=== PATIENT | female | born 1990 | race Two or more races ===

== ENCOUNTER 2025-01-20 19:54 | Inpatient (IN) | payer MEDICAID, OTHER ==
[~2025-01-20] VITALS: Ht 167.6 cm; Wt 72.1 kg
--- NOTE | 2025-01-20 21:31 | ED.PDOC ---
GI ASSESSMENT HPI Comments 34-year-old female with a history of UTI, presented to the ER with a chief complaint of epigastric abdominal pain for the past 1 day. Patient reports that she started experiencing epigastric abdominal pain that radiates down to a lower abdomen, she recently was diagnosed with a UTI 6 months back, and her symptoms are still persistent. She is not on any antibiotics currently. She does report urinary frequency and dysuria. Denies fever and chills, nausea and vomiting. Had 2 bowel movements earlier today. Abdominal pain is burning type in nature. She just finished her menstruation and has a IUD. And denied recent travel or sick contacts. Denies seeing a physician or taking any medications. Patient seen and examined. Epigastric and right upper quadrant tenderness. Chief Complaint: Abdominal Pain Time Seen by MD: 20:19 Reviewed Notes: Nurses Notes Allergies: Coded Allergies: NO KNOWN ALLERGIES (Unverified , 01/20/25) Information Source: Patient Mode of Arrival: Ambulatory Constitutional: denies: chills, diaphoresis, fatigue, fever, malaise, sweats, weakness, others EENTM: denies: blurred vision, double vision, ear bleeding, ear discharge, ear drainage, ear pain, ear ringing, eye pain, eye redness, hearing loss, mouth pain, mouth swelling, nasal discharge, nose bleeding, nose congestion, nose pain, photophobia, tearing, throat pain, throat swelling, voice changes, others Respiratory: denies: cough, hemoptysis, orthopnea, SOB at rest, shortness of breath, SOB with excertion, stridor, wheezing, others Cardiovascular: reports: dizzy spells; denies: chest pain, diaphoresis, Dyspnea on exertion, edema, irregular heart beat, left arm pain, lightheadedness, palpitations, PND, syncope, others Gastrointestinal: reports: abdominal pain Genitourinary: reports: burning, frequency Neurological: denies: dizziness, fainting, headache, left sided numbness, left sided weakness, numbness, paresthesia, pre-existing deficit, right sided numbness, right sided weakness, seizure, speech problems, tingling, tremors, weakness, others Musculoskeletal: denies: back pain, gout, joint pain, joint swelling, muscle pain, muscle stiffness, neck pain, others Integumetry: denies: bruises, change in color, change in hair/nails, dryness, laceration, lesions, lumps, rash, wounds, others Allergic/Immunocompromised: denies: Difficulty Healing, Frequent Infections, Hives, Itching, others Hematologic/Lymphatic: denies: anemia, blood clots, easy bleeding, easy bruising, swollen glands, others Endocrine: denies: excessive hunger, excessive sweating, excessive thirst, excessive urination, flushing, intolerance to cold, intolerance to heat, unexplained weight gain, unexplained weight loss, others Psychiatric: denies: anxiety, bipolar disorder, depression, hopeless, panic disorder, schizophrenia, sleepless, suicidal, others Physical Exam General Appearance: No Apparent Distress, Normal HEENT: Other (Dry mucous membranes) Neck: NOT DONE Respiratory: No Accessory Muscle Use, No Respiratory Distress, Normal Breath Sounds Cardiovascular: No Edema, No Murmur, Tachycardia Breast Exam: Deferred Gastrointestinal: No Organomegaly, Normal Bowel Sounds, Tenderness (Right upper quadrant) Genitalia: Deferred Pelvic: Deferred Rectal: Deferred Extremities: No calf tenderness, Normal capillary refill, Normal inspection, Normal range of motion, Non-tender, No pedal edema Neurologic: Alert, No Motor Deficits, Normal Affect, Normal Mood, No Sensory Deficits Cerebellar Function: NOT DONE Reflexes: NOT DONE Skin: Dry Lymphatic: NOT DONE Was a procedure done? Was a procedure done?: No GI differential Dx Differential Diagnosis: Gastritis/PUD, Gastroenteritis, Pancreatitis, Food Poisoning X-Ray, Labs, Meds, VS Vital Signs Date Time Temp Pulse Resp B/P (MAP) Pulse Ox O2 Delivery O2 Flow Rate FiO2 01/20/25 19:56 97.9 104 16 143/91 98 97.9 Lab Test 01/21/25 00:23 01/20/25 22:00 01/20/25 21:01 Range/Units White Blood Count 14.2 H 12.9 H 4.4-10.8 10^3/uL Red Blood Count 4.70 4.65 4.0-5.20 10^6/uL Hemoglobin 13.8 13.9 12.2-16.2 g/dL Hematocrit 41.3 40.5 36.0-46.0 % Mean Corpuscular Volume 87.9 87.2 80.0-100.0 fL Mean Corpuscular Hemoglobin 29.5 29.8 28.0-32.0 pg Mean Corpuscular Hemoglobin Concent 33.5 34.2 32.0-36.0 g/dL Red Cell Distribution Width 14.0 13.7 11.8-14.3 % Platelet Count 233 227 140-450 10^3/uL Mean Platelet Volume 8.8 8.7 6.9-10.8 fL Neutrophils (%) (Auto) 73.6 74.6 37.0-80.0 % Lymphocytes (%) (Auto) 18.9 18.5 10.0-50.0 % Monocytes (%) (Auto) 6.1 5.6 0.0-12.0 % Eosinophils (%) (Auto) 1.2 1.1 0.0-7.0 % Basophils (%) (Auto) 0.2 0.2 0.0-2.0 % Neutrophils # (Auto) 10.4 H 9.6 H 1.6-8.6 10 ^3/uL Lymphocytes # (Auto) 2.7 2.4 0.4-5.4 10 ^3/uL Monocytes # (Auto) 0.9 0.7 0-1.3 10 ^3/uL Eosinophils # (Auto) 0.2 0.1 0-0.8 10 ^3/uL Basophils # (Auto) 0 0 0-0.2 10 ^3/uL Nucleated Red Blood Cells 0.0 0.2 % Sodium Level 141 140 136-145 mmol/L Potassium Level 3.7 3.8 3.5-5.1 mmol/L Chloride Level 104 103 98-107 mmol/L Carbon Dioxide Level 27 28 20-31 mmol/L Anion Gap 10 9 5-15 Blood Urea Nitrogen < 5 L 7 L 9-23 mg/dL Creatinine 0.69 0.69 0.550-1.02 mg/dL Glomerular Filtration Rate Calc 115 115 >90 mL/min BUN/Creatinine Ratio 7.2 L 10.1 10.0-20.0 Serum Glucose 96 98 74-106 mg/dL Hemoglobin A1c 5.2 <5.7 % A1C Calcium Level 9.3 9.4 8.7-10.4 mg/dL Phosphorus Level 3.7 2.4-5.1 mg/dL Vitamin B12 Level Pending Vitamin D 25-Hydroxy 23.8 L 30.0-100 ng/mL Thyroid Stimulating Hormone (TSH) Pending Urine Color Light-yellow Yellow Urine Clarity Clear Clear Urine pH 7.0 5.0-9.0 Urine Specific [place] 1.009 1.001-1.035 Urine Protein Negative Negative Urine Ketones Negative Negative Urine Blood Negative Negative /uL Urine Nitrite Negative Negative Urine Bilirubin Negative Negative Urine Urobilinogen Normal Negative mg/dL Urine Leukocyte Esterase 3+ Negative /uL Urine RBC None seen 0 - 4 /hpf Urine Microscopic WBC 9 H 0-5 /HPF Urine Squamous Epithelial Cells Few <5 /hpf Urine Bacteria Mod H None Seen /hpf Urine Glucose Normal Normal mg/dL Urine Test Negative Negative Prothrombin Time 11.1 9.3-11.8 sec Prothrombin Time INR 1.05 0.9-1.15 Activated Partial Thromboplast Time 35.1 H 24.5-34.5 SEC Lactic Acid Level 0.7 0.4-2.0 mmol/L Total Bilirubin 0.6 0.2-1.0 mg/dL Aspartate Amino Transferase (AST) 14 13-40 U/L Alanine Aminotransferase (ALT) 11 7-40 U/L Alkaline Phosphatase 52 46-116 U/L Total Protein 7.9 5.7-8.2 g/dL Albumin 4.7 3.2-4.8 g/dL Lipase 37 12-53 U/L X-Ray, Labs, Meds, VS Comment CT abdomen showed Acute uncomplicated appendicitis. Images Reviewed?: Images reviewed and evaluated by me Time of 1ST Reevaluation: 00:00 Reevaluation 1ST: Unchanged Patient Education/Counseling: Diagnosis, Treatment Family Education/Counseling: Diagnosis, Treatment SEPSIS Sepsis Screen Date sepsis recognized/suspect: Jan 20, 2025 Time Sepsis recognized/suspect: 1955 Recent Procedure: No On Antibiotic Therapy: No Respiratory Rate >20: No Heart Rate >90: No Temp<36 C (96.8 F) or >38.3 C: No SBP <90 or MAP <65 mmHG: No New Acute Mental Status Change: No Is the patient on CPAP, BIPAP,: No Physician Orders Ct Ab Pel Wo Con-No Oral Or Iv (01/20/25 20:58) Electrocardigram (01/21/25 00:11) Pantoprazole (Protonix) (01/21/25 06:00) Metronidazole 500mg/100ml (Flagyl 500mg/ (01/21/25 00:15) Npo (Nothing By Mouth) Diet (01/21/25 Breakfast) * Surgical Consult (01/21/25 ) Drug Screen (01/21/25 00:42) Thyroid Stimulating Hormone (01/21/25 00:42) Vitamin B12 (01/21/25 00:42) Vital Signs Date Time Temp Pulse Resp B/P (MAP) Pulse Ox O2 Delivery O2 Flow Rate FiO2 01/20/25 19:56 97.9 104 16 143/91 98 97.9 Laboratory Tests Test 01/20/25 21:01 01/21/25 00:23 Lactic Acid Level 0.7 mmol/L (0.4-2.0) White Blood Count 12.9 10^3/uL (4.4-10.8) H 14.2 10^3/uL (4.4-10.8) H Departure 1 Departure Time of Disposition: 00:30 Impression: Primary Impression: Acute appendicitis Disposition: ADMITTED INPATIENT Condition: Fair Comments Patient admitted to this facility for further workup and management of acute appendicitis including IV antibiotics, IV fluids and surgical consultation. Critical Care Note Critical Care Time?: No Stability Stability form required: NELSON Shin RESIDENT Jan 20, 2025 21:31
[2025-01-20 21:39] LABS: Hematocrit 40.5 % (36.0-46.0); Hemoglobin 13.9 g/dL (12.2-16.2); Mean Corpuscular Hemoglobin 29.8 pg (28.0-32.0); Mean Corpuscular Volume 87.2 fL (80.0-100.0); Nucleated Red Blood Cells % 0.2 %
[2025-01-20 21:49] LABS: Alanine Aminotransferase 11 U/L (7-40); Albumin 4.7 g/dL (3.2-4.8); Alkaline Phosphatase 52 U/L (46-116); Anion Gap 9 (5-15); BUN/Creatinine Ratio 10.1 (10.0-20.0); Bilirubin, Total 0.6 mg/dL (0.2-1.0); Calcium 9.4 mg/dL (8.7-10.4); Carbon Dioxide 28 mmol/L (20-31); Chloride 103 mmol/L (98-107); Glucose 98 mg/dL (74-106); Potassium 3.8 mmol/L (3.5-5.1); Sodium 140 mmol/L (136-145); Total Protein 7.9 g/dL (5.7-8.2)
[2025-01-20 22:39] LABS: Urine Protein, UAD Negative (Negative)
[2025-01-20 22:42] LABS: Blood Urea Nitrogen 7 mg/dL (9-23)
--- NOTE | 2025-01-20 23:26 | DVH ---
Exam: CT CT AB PEL WO CON-NO ORAL OR IV History: abdominal pain Comparison Study: None Technique: Multidetector spiral CT of the abdomen was performed from lung bases to pubic symphysis. I maging was performed without IV contrast. Axial, coronal and sagittal multiplanar reformats were obta ined from the axial data set by the technologist. Radiation Dose : 1. Abdomen/Pelvis: CTDIvol 6.36 mGy, DLP 305.1 mGy*cm. Findings: Evaluation of solid organs is limited due to lack of intravenous contrast use. Lung Bases: No acute or significant lung base finding. Normal heart size. No pleural or pericardial effusion. Liver: The liver is normal in size. No focal lesions. Gallbladder and Biliary Tree: Unremarkable Spleen: Unremarkable Pancreas: The pancreas is grossly normal in appearance. Adrenal Glands: Unremarkable Kidneys: Kidneys are grossly normal without calculi or hydronephrosis. Bladder: Grossly unremarkable for degree of distention. Bowel: Appendix is fluid-filled and dilated extending deep into the pelvis posteriorly measuring 1.2 cm in diameter. Mild surrounding inflammatory changes. Ascites: Trace free fluid, within normal limits for physiologic. Lymphadenopathy: No mesenteric, retroperitoneal or periportal lymphadenopathy. Abdominal Wall and Mesentery: Unremarkable. Vasculature: The visualized abdominal aorta is normal in size and caliber. Evaluation of abdominal a nd pelvic vessels is limited due to lack of intravenous contrast. Pelvic Organs: IUD in-situ. Musculoskeletal: No aggressive focal bony lesions, acute fractures or dislocation. IMPRESSION: Acute uncomplicated appendicitis. Radiation optimization: All CT scans at this facility use at least one of these dose optimization aime hniques: automated exposure control mA and/or kV adjustment per patient size (includes targeted exam s where dose is matched to clinical indication) or iterative reconstruction.
[2025-01-21] VITALS (8 sets, daily range): BP systolic 82–115; BP diastolic 48–73; PULSE 60–83; RESP 9–20; TEMP 97.6–98.2; O2SAT 96–98
[2025-01-21 00:43] LABS: INR 1.05 (0.9-1.15); Partial Thromboplastin Time 35.1 SEC (24.5-34.5); Prothrombin Time 11.1 sec (9.3-11.8)
[2025-01-21 01:06] LABS: Chloride 104 mmol/L (98-107); Potassium 3.7 mmol/L (3.5-5.1); Sodium 141 mmol/L (136-145)
[2025-01-21 01:07] LABS: Anion Gap 10 (5-15); Carbon Dioxide 27 mmol/L (20-31)
[2025-01-21 01:08] LABS: Calcium 9.3 mg/dL (8.7-10.4); Hematocrit 41.3 % (36.0-46.0); Hemoglobin 13.8 g/dL (12.2-16.2); Mean Corpuscular Hemoglobin 29.5 pg (28.0-32.0); Mean Corpuscular Volume 87.9 fL (80.0-100.0); Nucleated Red Blood Cells % 0.0 %
[2025-01-21 01:12] LABS: Glucose 96 mg/dL (74-106)
[2025-01-21 01:13] LABS: BUN/Creatinine Ratio 7.2 (10.0-20.0); Blood Urea Nitrogen < 5 mg/dL (9-23)
[2025-01-21] MEDS ORDERED: ONDANSETRON HCL 4 MG/2 ML VIAL IV PRN ×2 (01:15→16:30)
--- NOTE | 2025-01-21 01:15 | DVHHPRES ---
History of Present Illness Resident Creating Document: ANTON COLUNGA History of Present Illness Ms. Reveles Is a 34-year-old female with no prior medical history, who presents today with chief complaint of abdominal pain. The patient states the pain began last night and is described as sharp pain in epigastrium, intensity 10/10, that radiates down to lower abdominal quadrants and toward her rectum, associated with inability to tolerate food and liquids, dry heaving, nausea, chills, and palpitation. She denies fever, diarrhea, chest pain, shortness of breath, and o ther symptoms. Due to persistence of symptoms, the patient sought medical attention in the emergency department. On evaluation in the ED, the patient was afebrile, tachycardic, and hypertensive. Initial labs show leukocytosis with neutrophilia and UA significant for possible UTI. Abdominal CT shows appendix is fluid-filled and dilated extending deep into the pelvis posteriorly with mild surrounding inflammatory changes suggestive of acute uncomplicated appendicitis. The patient was placed on NPO and started on IV fluids, IV pain medication, and IV antibiotics. She was admitted for further workup and management. Personal history: Denies Surgical history: previous D&C Allergies: Denies Social history: Denies drug, alcohol, and tobacco use. States she lives with her and feels safe. Review of Systems Review of Systems Constitutional: Refers chills, nausea, Denies weight loss, fever HEENT: Denies changes in vision and hearing. Respiratory: Denies shortness of breath and cough Cardiovascular: Refers palpitations Denies chest discomfort GI: Refers abdominal pain Denies abdominal distention, diarrhea : Denies dysuria and urinary frequency. Musculoskeletal: Denies Skin: Denies rash and pruritus. Neurological: denies dizziness headache vision or hearing problems Allergies: Coded Allergies: NO KNOWN ALLERGIES (Unverified , 01/20/25) Medications Current Medications Medications Dose Ordered Sig/Tarsha Route Start Time Stop Time Status Last Admin Dose Admin Metronidazole 100 ml @ 100 mls/hr Q8HR IV 01/21/25 00:15 Exam Vital Signs Vital Signs Date Time Temp Pulse Resp B/P (MAP) Pulse Ox O2 Delivery O2 Flow Rate FiO2 01/20/25 19:56 97.9 104 16 143/91 98 97.9 Exam General: The patient alert and oriented in person place and time. Patient following commands HEENT: Normocephalic, atraumatic, normal reactive pupils, EOM intact, pink conjunctiva, pink moist mucous membrane Respiratory/pulmonary: Bilateral chest expansion, no pain on palpation of chest wall, clear lungs bilaterally, vesicular murmurs present in almost all lung ryan, no associated crackles or wheezes. Cardiovascular: Tachycardia, normal rhythm, normal S1 and S2, no murmurs Abdomen: Abdomen nondistended, normal bowel sounds, soft, pain to palpation in lower abdominal quadrants, McBurney positive, Rovsing positive, Josselin negative, no palpable masses. Extremities: No deformities, there is no peripheral edema present at the lower extremities, normal pulses Skin: No rashes or pruritus, there is no sacral edema present at this time. Neurological: Intact cranial nerves with no focal neurologic deficits Labs/Xrays Labs Test 01/21/25 00:23 01/20/25 22:00 01/20/25 21:01 Range/Units White Blood Count 14.2 H 4.4-10.8 10^3/uL Red Blood Count 4.70 4.0-5.20 10^6/uL Hemoglobin 13.8 12.2-16.2 g/dL Hematocrit 41.3 36.0-46.0 % Mean Corpuscular Volume 87.9 80.0-100.0 fL Mean Corpuscular Hemoglobin 29.5 28.0-32.0 pg Mean Corpuscular Hemoglobin Concent 33.5 32.0-36.0 g/dL Red Cell Distribution Width 14.0 11.8-14.3 % Platelet Count 233 140-450 10^3/uL Mean Platelet Volume 8.8 6.9-10.8 fL Neutrophils (%) (Auto) 73.6 37.0-80.0 % Lymphocytes (%) (Auto) 18.9 10.0-50.0 % Monocytes (%) (Auto) 6.1 0.0-12.0 % Eosinophils (%) (Auto) 1.2 0.0-7.0 % Basophils (%) (Auto) 0.2 0.0-2.0 % Neutrophils # (Auto) 10.4 H 1.6-8.6 10 ^3/uL Lymphocytes # (Auto) 2.7 0.4-5.4 10 ^3/uL Monocytes # (Auto) 0.9 0-1.3 10 ^3/uL Eosinophils # (Auto) 0.2 0-0.8 10 ^3/uL Basophils # (Auto) 0 0-0.2 10 ^3/uL Nucleated Red Blood Cells 0.0 % Sodium Level 141 136-145 mmol/L Potassium Level 3.7 3.5-5.1 mmol/L Chloride Level 104 98-107 mmol/L Carbon Dioxide Level 27 20-31 mmol/L Anion Gap 10 5-15 Blood Urea Nitrogen < 5 L 9-23 mg/dL Creatinine 0.69 0.550-1.02 mg/dL Glomerular Filtration Rate Calc 115 >90 mL/min BUN/Creatinine Ratio 7.2 L 10.0-20.0 Serum Glucose 96 74-106 mg/dL Calcium Level 9.3 8.7-10.4 mg/dL Urine Color Light-yellow Yellow Urine Clarity Clear Clear Urine pH 7.0 5.0-9.0 Urine Specific [place] 1.009 1.001-1.035 Urine Protein Negative Negative Urine Ketones Negative Negative Urine Blood Negative Negative /uL Urine Nitrite Negative Negative Urine Bilirubin Negative Negative Urine Urobilinogen Normal Negative mg/dL Urine Leukocyte Esterase 3+ Negative /uL Urine RBC None seen 0 - 4 /hpf Urine Microscopic WBC 9 H 0-5 /HPF Urine Squamous Epithelial Cells Few <5 /hpf Urine Bacteria Mod H None Seen /hpf Urine Glucose Normal Normal mg/dL Urine Test Negative Negative Prothrombin Time 11.1 9.3-11.8 sec Prothrombin Time INR 1.05 0.9-1.15 Activated Partial Thromboplast Time 35.1 H 24.5-34.5 SEC Lactic Acid Level 0.7 0.4-2.0 mmol/L Total Bilirubin 0.6 0.2-1.0 mg/dL Aspartate Amino Transferase (AST) 14 13-40 U/L Alanine Aminotransferase (ALT) 11 7-40 U/L Alkaline Phosphatase 52 46-116 U/L Total Protein 7.9 5.7-8.2 g/dL Albumin 4.7 3.2-4.8 g/dL Lipase 37 12-53 U/L SEPSIS Sepsis Screen Date sepsis recognized/suspect: Jan 20, 2025 Time Sepsis recognized/suspect: 1955 Recent Procedure: No On Antibiotic Therapy: No Respiratory Rate >20: No Heart Rate >90: No Temp<36 C (96.8 F) or >38.3 C: No SBP <90 or MAP <65 mmHG: No New Acute Mental Status Change: No Is the patient on CPAP, BIPAP,: No Physician Orders Ct Ab Pel Wo Con-No Oral Or Iv (01/20/25 20:58) Electrocardigram (01/21/25 00:11) Pantoprazole (Protonix) (01/21/25 06:00) Metronidazole 500mg/100ml (Flagyl 500mg/ (01/21/25 00:15) Npo (Nothing By Mouth) Diet (01/21/25 Breakfast) Type And Screen (01/21/25 00:11) * Surgical Consult (01/21/25 ) Drug Screen (01/21/25 00:42) Hemoglobin A1c (01/21/25 00:42) Phosphorus (01/21/25 00:42) Thyroid Stimulating Hormone (01/21/25 00:42) Vitamin D, 25-Hydroxy (01/21/25 00:42) Vitamin B12 (01/21/25 00:42) Basic Metabolic Panel (01/21/25 00:23) Admit (01/21/25 01:08) Allergies (01/21/25 01:08) Code Status (01/21/25 01:08) Stat Ekg For Chest Pain (01/21/25 01:08) Notify Md Of Changes From Base (01/21/25 01:08) Emergency Dysrhythmia Protocol (01/21/25 01:08) Rhythm Strips Once Every Shift (01/21/25 01:08) Ketorolac Injection (Toradol Injection) (01/21/25 01:15) Ceftriaxone Ivpb Rocephin (01/21/25 09:00) Metronidazole Ivpb Flagyl (01/21/25 06:00) NS (01/21/25 01:15) Pantoprazole (Protonix) (01/21/25 10:00) Ondansetron Hcl (Zofran) (01/21/25 01:15) Vital Signs Date Time Temp Pulse Resp B/P (MAP) Pulse Ox O2 Delivery O2 Flow Rate FiO2 01/20/25 19:56 97.9 104 16 143/91 98 97.9 Laboratory Tests Test 01/20/25 21:01 01/21/25 00:23 Lactic Acid Level 0.7 mmol/L (0.4-2.0) White Blood Count 12.9 10^3/uL (4.4-10.8) H 14.2 10^3/uL (4.4-10.8) H Assessment/Plan Assessment/Plan Assessment and Plan: Intractable abdominal pain secondary to Acute appendicitis - Abdominal CT: Appendix is fluid-filled and dilated extending deep into the pelvis posteriorly measuring 1.2 cm in diameter, mild surrounding inflammatory changes, acute uncomplicated appendicitis - NS 1000 cc bolus - NS maintenance 75 cc/hour - Metronidazole 500 mg IV q.8 hours - Ceftriaxone 1 g IV daily - Toradol 15 mg IV q.6 hours PRN - Zofran 4 mg IV q.4 hours PRN - General surgery has been consulted - The patient has been placed on NPO pending evaluation by General surgery Acute Cystitis without Hematuria - Ceftriaxone 1 g IV daily - Urine culture has been ordered Vitamin-D deficiency - Vitamin-D 50471 units Q 7 D once NPO is lifted Diet: NPO DVT prophylaxis: Patient is ambulatory GI prophylaxis: Protonix 40 mg IV daily Case discussed with Dr. Payne Goals of care discussed with the patient and her for 25 minutes. Full code. Plan discussed with: Patient, Spouse, Other (Nurses) My Orders Orders - ANTON COLUNGA RESIDENT Procedure Category Date Status Time Drug Screen LAB 01/21/25 Logged 00:42 Hemoglobin A1c LAB 01/21/25 In Process 00:42 Phosphorus LAB 01/21/25 In Process 00:42 Thyroid Stimulating LAB 01/21/25 In Process Hormone 00:42 Vitamin D, 25-Hydroxy LAB 01/21/25 In Process 00:42 Vitamin B12 LAB 01/21/25 In Process 00:42 Basic Metabolic Panel LAB 01/21/25 In Process 00:23 Admit ADMIT 01/21/25 Transmitted 01:08 Allergies LIONEL 01/21/25 Transmitted 01:08 Code Status CODE 01/21/25 Transmitted 01:08 Stat Ekg For Chest LIONEL 01/21/25 Transmitted Pain 01:08 Notify Of Changes LIONEL 01/21/25 Transmitted From Base 01:08 Emergency Dysrhythmia LIONEL 01/21/25 Transmitted Protocol 01:08 Rhythm Strips Once LIONEL 01/21/25 Transmitted Every Shift 01:08 Ketorolac Injection PHA 01/21/25 Transmitted (Toradol Injection) 01:15 Ceftriaxone Ivpb PHA 01/21/25 Transmitted Rocephin 09:00 Metronidazole Ivpb PHA 01/21/25 Transmitted Flagyl 06:00 NS PHA 01/21/25 Transmitted 01:15 Pantoprazole PHA 01/21/25 Transmitted (Protonix) 10:00 Ondansetron Hcl PHA 01/21/25 Transmitted (Zofran) 01:15 Date of Service: Jan 21, 2025 Billing Provider: HARITHA VAZQUEZ MD Common Visit Codes: 51992-EVPWUTA INP/OBS CARE (HIGH) Secondary Visit Codes: 98097-[id number] CARE PLAN 30 MINUTES ANTON COLUNGA RESIDENT Jan 21, 2025 01:15 LESLYE FARRELL RESIDENT Jan 21, 2025 02:40
[2025-01-21] MEDS: ONDANSETRON HCL 4 MG/2 ML VIAL IM ONE (01:37)
[2025-01-21] MEDS: PANTOPRAZOLE 40 MG TAB PO ONE (01:37)
[2025-01-21] MEDS: SODIUM CHLORIDE 0.9% 1,000 ML IV ONE (01:53)
[2025-01-21] MEDS: KETOROLAC TROMETH 30 MG/ML 1ML VIAL IV ONE ×2 (02:02→16:55)
[2025-01-21 03:30] LABS: Amphetamine Screen, Urine Neg (NEGATIVE); Barbiturate Scree,Urine Neg (NEGATIVE); Benzodiazephine Screen, Urine Neg (NEGATIVE); Cannabinoid Screen, Urine Neg (NEGATIVE); Cocaine Screen, Urine Neg (NEGATIVE); Opiate Scree,Urine Neg (NEGATIVE); Phencyclidine Screen, Urine Neg (NEGATIVE)
[2025-01-21] MEDS: SODIUM CHLORIDE 0.9% 1,000 ML IV SCH ×2 (04:02→17:40)
[2025-01-21] MEDS ORDERED: POTASSIUM EFFERVESENT TAB 25 MEQ GT ONE (06:15)
[2025-01-21] MEDS: PANTOPRAZOLE 40 MG/10 ML VIAL INJ IV ONE (06:26)
[2025-01-21] MEDS: PANTOPRAZOLE 40 MG/10 ML VIAL INJ IV SCH (09:09)
[2025-01-21] MEDS: SODIUM CHLORIDE 0.9% 1,800 ML IV ONE (09:11)
--- NOTE | 2025-01-21 14:25 | DVHINCON2 ---
Date of service: Jan 21, 2025 Family History: Hypertension G8 MOTHER Allergies: Coded Allergies: NO KNOWN ALLERGIES (Unverified , 01/20/25) Home Meds No Active Prescriptions or Reported Meds Current Medications Current Medications Medications (Trade) Dose Ordered Sig/Tarsha Route PRN Reason Start Time Stop Time Status Last Admin Metronidazole 100 ml @ 100 mls/hr Q8HR IV 01/21/25 00:15 01/21/25 13:58 Ketorolac Tromethamine (Toradol Injection) 15 mg Q6HPRN PRN IV MILD PAIN (1-3 PAIN SCALE) 01/21/25 01:15 01/26/25 01:14 Ceftriaxone Sodium 50 ml @ 100 mls/hr DAILY@09 IV 01/21/25 09:00 Metronidazole 100 ml @ 100 mls/hr Q8HR IV 01/21/25 06:00 01/21/25 01:20 DC Sodium Chloride 1,000 ml @ 75 mls/hr [id number] IV 01/21/25 01:15 01/21/25 08:22 DC 01/21/25 04:02 Pantoprazole Sodium (Protonix) 40 mg DAILY IV 01/21/25 10:00 Ondansetron HCl (Zofran) 4 mg Q4HPRN PRN IV NAUSEA / VOMITING 01/21/25 01:15 Sodium Chloride 1,000 ml @ 100 mls/hr Q10H IV 01/21/25 08:15 Vital Signs Vital Signs Date Time Temp Pulse Resp B/P (MAP) Pulse Ox O2 Delivery O2 Flow Rate FiO2 01/21/25 13:10 98.2 68 18 101/60 (74) 97 98.2 01/21/25 01:40 Room Air* 0 21 Labs/Diagnostic Data Labs Test 01/21/25 00:23 01/20/25 22:20 01/20/25 22:00 01/20/25 21:01 Range/Units White Blood Count 14.2 H 4.4-10.8 10^3/uL Red Blood Count 4.70 4.0-5.20 10^6/uL Hemoglobin 13.8 12.2-16.2 g/dL Hematocrit 41.3 36.0-46.0 % Mean Corpuscular Volume 87.9 80.0-100.0 fL Mean Corpuscular Hemoglobin 29.5 28.0-32.0 pg Mean Corpuscular Hemoglobin Concent 33.5 32.0-36.0 g/dL Red Cell Distribution Width 14.0 11.8-14.3 % Platelet Count 233 140-450 10^3/uL Mean Platelet Volume 8.8 6.9-10.8 fL Neutrophils (%) (Auto) 73.6 37.0-80.0 % Lymphocytes (%) (Auto) 18.9 10.0-50.0 % Monocytes (%) (Auto) 6.1 0.0-12.0 % Eosinophils (%) (Auto) 1.2 0.0-7.0 % Basophils (%) (Auto) 0.2 0.0-2.0 % Neutrophils # (Auto) 10.4 H 1.6-8.6 10 ^3/uL Lymphocytes # (Auto) 2.7 0.4-5.4 10 ^3/uL Monocytes # (Auto) 0.9 0-1.3 10 ^3/uL Eosinophils # (Auto) 0.2 0-0.8 10 ^3/uL Basophils # (Auto) 0 0-0.2 10 ^3/uL Nucleated Red Blood Cells 0.0 % Sodium Level 141 136-145 mmol/L Potassium Level 3.7 3.5-5.1 mmol/L Chloride Level 104 98-107 mmol/L Carbon Dioxide Level 27 20-31 mmol/L Anion Gap 10 5-15 Blood Urea Nitrogen < 5 L 9-23 mg/dL Creatinine 0.69 0.550-1.02 mg/dL Glomerular Filtration Rate Calc 115 >90 mL/min BUN/Creatinine Ratio 7.2 L 10.0-20.0 Serum Glucose 96 74-106 mg/dL Hemoglobin A1c 5.2 <5.7 % A1C Calcium Level 9.3 8.7-10.4 mg/dL Phosphorus Level 3.7 2.4-5.1 mg/dL Vitamin B12 Level 607 211-911 pg/mL Vitamin D 25-Hydroxy 23.8 L 30.0-100 ng/mL Thyroid Stimulating Hormone (TSH) 1.25 0.55-4.78 uIU/mL Urine Opiates Screen Neg NEGATIVE Urine Fentanyl Screen Neg NEGATIVE Urine Barbiturates Screen Neg NEGATIVE Urine Phencyclidine Screen Neg NEGATIVE Urine Amphetamines Screen Neg NEGATIVE Urine Benzodiazepines Screen Neg NEGATIVE Urine Cocaine Screen Neg NEGATIVE Urine Cannabinoids Screen Neg NEGATIVE Urine Color Light-yellow Yellow Urine Clarity Clear Clear Urine pH 7.0 5.0-9.0 Urine Specific [place] 1.009 1.001-1.035 Urine Protein Negative Negative Urine Ketones Negative Negative Urine Blood Negative Negative /uL Urine Nitrite Negative Negative Urine Bilirubin Negative Negative Urine Urobilinogen Normal Negative mg/dL Urine Leukocyte Esterase 3+ Negative /uL Urine RBC None seen 0 - 4 /hpf Urine Microscopic WBC 9 H 0-5 /HPF Urine Squamous Epithelial Cells Few <5 /hpf Urine Bacteria Mod H None Seen /hpf Urine Glucose Normal Normal mg/dL Urine Test Negative Negative Prothrombin Time 11.1 9.3-11.8 sec Prothrombin Time INR 1.05 0.9-1.15 Activated Partial Thromboplast Time 35.1 H 24.5-34.5 SEC Lactic Acid Level 0.7 0.4-2.0 mmol/L Total Bilirubin 0.6 0.2-1.0 mg/dL Aspartate Amino Transferase (AST) 14 13-40 U/L Alanine Aminotransferase (ALT) 11 7-40 U/L Alkaline Phosphatase 52 46-116 U/L Total Protein 7.9 5.7-8.2 g/dL Albumin 4.7 3.2-4.8 g/dL Lipase 37 12-53 U/L Assessment [id number] PAIN RLQ AFEBRILE VSS ABD SOFT TENDER RLQ CT SCAN AC APPENDICITIS LAP/OPEN APPENDECTOMY FAMILY AND NURSE AT BEDSIDE Plan discussed with: Patient PRAVEEN MORRELL MD Jan 21, 2025 14:25
--- NOTE | 2025-01-21 15:09 | DVHINCON2 ---
DATE OF CONSULTATION: 01/21/2025 HISTORY OF PRESENT ILLNESS: A 34-year-old, coming with right lower quadrant pain starting Monday, 2-3 days ago and it got worse, came to the Emergency Room. I got to see her. The pain is persisting in the right lower abdomen. It started out in the mid abdomen. No nausea or vomiting. No constipation or diarrhea. No hematemesis or melena. No bleeding per rectum. PAST MEDICAL HISTORY: No diabetes or hypertension. PAST SURGICAL HISTORY: Previous D and C. PHYSICAL EXAMINATION: VITAL SIGNS: Afebrile. Stable vital signs. HEENT: There is no evidence of pallor, cyanosis, or jaundice. NECK: Supple, nontender with thyromegaly or lymphadenopathy. CHEST AND LUNGS: Clear. HEART: Within normal limits. ABDOMEN: Soft. Tender in the right lower quadrant with evidence of rebound. EXTREMITIES: Unremarkable. NEUROLOGIC: Intact. CLINICAL IMPRESSION: Acute appendicitis. PLAN: Laparoscopic, possible open appendectomy. Benefits were discussed and a consent obtained. MD JANETT Rodríguez/CACHORRO/CLARISSA TID: [id number] RECEIPT: [id number] cc: SIRENA KENYON
[2025-01-21] MEDS ORDERED: fentaNYL CITRATE 100 MCG/2 ML VL ONE (15:10)
[2025-01-21] MEDS ORDERED: MIDAZOLAM HCL 2MG/2ML 2ml VIAL (1mg/ml) ONE (15:10)
[2025-01-21] MEDS ORDERED: ONDANSETRON HCL 4 MG/2 ML VIAL ONE (15:11)
[2025-01-21] MEDS ORDERED: ROCURONIUM 10MG/ML 10ML VIAL IV ONE (15:11)
[2025-01-21] MEDS ORDERED: METOCLOPRAMIDE HCL 5MG/ml INJ 2ml VIAL ONE (15:11)
[2025-01-21] MEDS ORDERED: PROPOFOL 10 MG/ML 20 ML IV ONE (15:11)
[2025-01-21] MEDS ORDERED: LIDOCAINE 2% (LOCAL ANESTH.) PF 5ml SDV ONE (15:11)
[2025-01-21] MEDS ORDERED: HYDROmorphone HCL 2 MG/ML VL/or syr ONE (15:44)
[2025-01-21] MEDS: BUPIVACAINE 0.25% INJ 50ML VIAL ONE (16:14)
--- NOTE | 2025-01-21 16:24 | DVHOP2 ---
Operative Report [id number] AC APPENDICITIS DRAIN INTRAABD ABSCESS LAP APPENDECTOMY EBL 5 CC NO DRAIN NO COMPLICATION STABLE TRANSFER TO RECOVERY ROOM PRAVEEN MORRELL MD Jan 21, 2025 16:24
[2025-01-21] MEDS ORDERED: HYDROmorphone HCL 2 MG/ML VL/or syr IV PRN (16:30)
[2025-01-21] MEDS ORDERED: METOCLOPRAMIDE HCL 5MG/ml INJ 2ml VIAL IV PRN (16:30)
--- NOTE | 2025-01-21 16:45 | DVHOP ---
DATE OF SURGERY: 01/21/2025 PREOPERATIVE DIAGNOSIS: Acute appendicitis. POSTOPERATIVE DIAGNOSES: Acute appendicitis, was found to have intraabdominal pelvic abscess. PROCEDURE: Drainage of intraabdominal pelvic abscess with laparoscopic appendectomy. SURGEON: Pipe Sweeney MD ARMATURE WINDER: None. ANESTHESIA: General. ESTIMATED BLOOD LOSS: Close to 5 mL. DRAINS: No drains were used. COMPLICATIONS: No complications were encountered. DESCRIPTION OF PROCEDURE: The patient was prepped and draped in the usual sterile fashion in the supine position and a supraumbilical incision was applied. It was taken down to the fascia. The Veress needle was introduced and CO2 insufflation was started with a pressure of 15 mmHg. The needle was withdrawn and replaced by the 12 mm trocar and the telescope was introduced. The appendix was found to be acutely inflamed and distended. Two 5 mm ports were applied more inferiorly, one above the symphysis and the third midway between the upper two. The patient was placed in Trendelenburg and right lateral decubitus position. The camera was moved to the lowermost 5 mm port. The upper 2 ports were used for surgery. The mesoappendix was transected using the Endo MIGUEL stapling device. The base of the appendix was then cleared for transection using the Harmonic device and it was transected using the Endo MIGUEL stapling device as well. The appendix was released in this fashion, was retrieved from the supraumbilical wound in an EndoCatch bag without any complication. Hemostasis was secured. Irrigation fluid was removed. The port sites were free from bleeding. EndoClose suture was used for the fascial closure of the supraumbilical wound. All the ports were withdrawn after all the CO2 was let out and the patient was placed in supine. The wound was then brought together using 3-0 Monocryl suture in a subcuticular fashion. Surgical glue was applied. The patient tolerated the procedure well and was taken back to the recovery room in a stable condition. Pipe Sweeney MD RG/LATESHA TID: [id number] RECEIPT: [id number] cc: Sully Hansen
[2025-01-21] MEDS: ACETAMINOPHEN IV 1000 MG/100ML (10MG/ML) IV ONE (16:55)
[2025-01-21] MEDS: ACETAMINOPHEN IV 100 ML IV ONE (18:14)
--- NOTE | 2025-01-21 18:44 | DVHPNRES ---
Progress Note Date Seen: Jan 21, 2025 Resident Creating Document: ARTURO WASHBURN RESIDENT Medical Necessity Reason Pt with a Central, PICC or Fol: No Subjective Review of Systems Ms. Reveles Is a 34-year-old female with no prior medical history, who presents today with chief complaint of abdominal pain. The patient states the pain began last night and is described as sharp pain in epigastrium, intensity 10/10, that radiates down to lower abdominal quadrants and toward her rectum, associated with inability to tolerate food and liquids, dry heaving, nausea, chills, and palpitation. She denies fever, diarrhea, chest pain, shortness of breath, and other symptoms. Due to persistence of symptoms, the patient sought medical attention in the emergency department. On evaluation in the ED, the patient was afebrile, tachycardic, and hypertensive. Initial labs show leukocytosis with neutrophilia and UA significant for possible UTI. Abdominal CT shows appendix is fluid-filled and dilated extending deep into the pelvis posteriorly with mild surrounding inflammatory changes suggestive of acute uncomplicated appendicitis. The patient was placed on NPO and started on IV fluids, IV pain medication, and IV antibiotics. She was admitted for further workup and management. Personal history: Denies Surgical history: previous D&C Allergies: Denies Social history: Denies drug, alcohol, and tobacco use. States she lives with her and feels safe. The patient was seen and examined at bedside. Overnight events were reviewed. The patient reports having 8/10 pain in the morning. Patient was seen postoperatively as well. She reports feeling cold. No other complaints reported. Objective vital signs Vital Sign Date Time Temp Pulse Resp B/P (MAP) Pulse Ox O2 Delivery O2 Flow Rate FiO2 01/21/25 18:09 Room Air* 0 21 01/21/25 17:25 97.7 83 18 108/73 (85) 96 97.7 Total Intake and Output 01/20/25 01/20/25 01/21/25 15:00 23:00 07:00 Intake Total 100 ml Balance 100 ml medications Current Medications Medications Dose Ordered Sig/Atrsha Route Start Time Stop Time Status Last Admin Dose Admin Metronidazole 100 ml @ 100 mls/hr Q8HR IV 01/21/25 00:15 01/21/25 13:58 100 MLS/HR Ketorolac Tromethamine 15 mg Q6HPRN PRN IV 01/21/25 01:15 01/26/25 01:14 Ceftriaxone Sodium 50 ml @ 100 mls/hr DAILY@09 IV 01/21/25 09:00 Pantoprazole Sodium 40 mg DAILY IV 01/21/25 10:00 Ondansetron HCl 4 mg Q4HPRN PRN IV 01/21/25 01:15 Sodium Chloride 1,000 ml @ 100 mls/hr Q10H IV 01/21/25 08:15 01/21/25 17:40 100 MLS/HR Examination Exam General: The patient alert and oriented in person place and time. Patient following commands HEENT: Normocephalic, atraumatic, normal reactive pupils, EOM intact, pink conjunctiva, pink moist mucous membrane Respiratory/pulmonary: Bilateral chest expansion, no pain on palpation of chest wall, clear lungs bilaterally, vesicular murmurs present in almost all lung ryan, no associated crackles or wheezes. Cardiovascular: Tachycardia, normal rhythm, normal S1 and S2, no murmurs Abdomen: Abdomen nondistended, normal bowel sounds, soft, pain to palpation in lower abdominal quadrants, McBurney positive, Rovsing positive, Josselin negative, no palpable masses. Extremities: No deformities, there is no peripheral edema present at the lower extremities, normal pulses Skin: No rashes or pruritus, there is no sacral edema present at this time. Neurological: Intact cranial nerves with no focal neurologic deficits laboratory and microbiology Laboratory Tests 01/21/25 00:23 Test 01/21/25 00:23 Range/Units Serum Glucose 96 74-106 mg/dL Problem List/Assessment/Plan Problem List/Assessment/Plan Day 0 Status post laparoscopic appendectomy Intractable abdominal pain secondary to Acute appendicitis - Abdominal CT: Appendix is fluid-filled and dilated extending deep into the pelvis posteriorly measuring 1.2 cm in diameter, mild surrounding inflammatory changes, acute uncomplicated appendicitis - NS 1000 cc bolus - NS maintenance 75 cc/hour - Metronidazole 500 mg IV q.8 hours - Ceftriaxone 1 g IV daily - Toradol 15 mg IV q.6 hours PRN - Zofran 4 mg IV q.4 hours PRN -laparoscopic appendectomy with a draining of intra-abdominal abscess performed today on 01/21/2025. No complication no drain, EBL 5 cc patient was stable postoperatively. Acute Cystitis without Hematuria - Ceftriaxone 1 g IV daily - Urine culture, pending Vitamin-D deficiency - Vitamin-D 08534 units Q 7 D once NPO is lifted Diet: NPO DVT prophylaxis: Patient is ambulatory GI prophylaxis: Protonix 40 mg IV daily Plan discussed with: Patient, Other (RN) My Orders My Orders Orders - ARTURO WASHBURN Procedure Category Date Status Time Sodium Chloride 0.9% PHA 01/21/25 In Process 08:15 Date of Service: Jan 21, 2025 Billing Provider: SIRENA KENYON MD Common Visit Codes: [id number] INP/OBS CARE(HIGH) ARTURO WASBHURN Jan 21, 2025 18:44 SIRENA KENYON MD Jan 22, 2025 05:58
[2025-01-21] MEDS: KETOROLAC TROMETH 30 MG/ML 1ML VIAL IV PRN (21:41)
[2025-01-22] VITALS (7 sets, daily range): BP systolic 93–121; BP diastolic 52–88; PULSE 62–81; RESP 17–18; TEMP 97.5–98.7; O2SAT 96–98
--- NOTE | 2025-01-22 06:00 | DVHPN2 ---
Date of Service: Jan 21, 2025 Billing Provider: SIRENA KENYON MD Common Visit Codes: NOT BILLABLE SIRENA KENYON MD Jan 22, 2025 06:00
[2025-01-22 06:25] LABS: Hematocrit 34.0 % (36.0-46.0); Hemoglobin 11.5 g/dL (12.2-16.2); Mean Corpuscular Hemoglobin 29.5 pg (28.0-32.0); Mean Corpuscular Volume 87.5 fL (80.0-100.0); Nucleated Red Blood Cells % 0.1 %
[2025-01-22 06:27] LABS: Potassium 3.6 mmol/L (3.5-5.1); Sodium 143 mmol/L (136-145)
[2025-01-22 06:28] LABS: Anion Gap 9 (5-15); Carbon Dioxide 23 mmol/L (20-31)
[2025-01-22 06:31] LABS: Calcium 7.9 mg/dL (8.7-10.4); Chloride 111 mmol/L (98-107)
[2025-01-22 06:33] LABS: Glucose 86 mg/dL (74-106)
[2025-01-22 06:34] LABS: BUN/Creatinine Ratio 8.8 (10.0-20.0); Blood Urea Nitrogen < 5 mg/dL (9-23)
[2025-01-22] MEDS: KETOROLAC TROMETH 30 MG/ML 1ML VIAL IV ONE (10:47)
[2025-01-22] MEDS: HYDROmorphone HCL 2 MG/ML VL/or syr IV PRN (14:50)
--- NOTE | 2025-01-22 17:35 | DVHPNRES ---
Progress Note Date Seen: Jan 22, 2025 Resident Creating Document: ARTURO WASHBURN RESIDENT Medical Necessity Reason Pt with a Central, PICC or Fol: No Subjective Review of Systems Ms. Reveles Is a 34-year-old female with no prior medical history, who presents today with chief complaint of abdominal pain. The patient states the pain began last night and is described as sharp pain in epigastrium, intensity 10/10, that radiates down to lower abdominal quadrants and toward her rectum, associated with inability to tolerate food and liquids, dry heaving, nausea, chills, and palpitation. She denies fever, diarrhea, chest pain, shortness of breath, and other symptoms. Due to persistence of symptoms, the patient sought medical attention in the emergency department. On evaluation in the ED, the patient was afebrile, tachycardic, and hypertensive. Initial labs show leukocytosis with neutrophilia and UA significant for possible UTI. Abdominal CT shows appendix is fluid-filled and dilated extending deep into the pelvis posteriorly with mild surrounding inflammatory changes suggestive of acute uncomplicated appendicitis. The patient was placed on NPO and started on IV fluids, IV pain medication, and IV antibiotics. She was admitted for further workup and management. Personal history: Denies Surgical history: previous D&C Allergies: Denies Social history: Denies drug, alcohol, and tobacco use. States she lives with her and feels safe. The patient was seen and examined at bedside. Overnight events were reviewed. Day 2 status post appendectomy: The patient reports having 8/10 pain at the surgical site. She reports passing flatus. No nausea, vomiting reported. She denies any other complaints. Objective vital signs Vital Sign Date Time Temp Pulse Resp B/P (MAP) Pulse Ox O2 Delivery O2 Flow Rate FiO2 01/22/25 17:00 98.2 74 17 121/73 (89) 98 98.2 01/22/25 08:00 Room Air* 0 21 Total Intake and Output 01/21/25 01/21/25 01/22/25 15:00 23:00 07:00 Intake Total 1200 ml 1200 ml 300 ml Balance 1200 ml 1200 ml 300 ml medications Current Medications Medications Dose Ordered Sig/Tarsha Route Start Time Stop Time Status Last Admin Dose Admin Metronidazole 100 ml @ 100 mls/hr Q8HR IV 01/21/25 00:15 01/22/25 13:34 100 MLS/HR Ketorolac Tromethamine 15 mg Q6HPRN PRN IV 01/21/25 01:15 01/26/25 01:14 01/22/25 16:49 15 MG Ceftriaxone Sodium 50 ml @ 100 mls/hr DAILY@09 IV 01/21/25 09:00 01/22/25 09:16 100 MLS/HR Pantoprazole Sodium 40 mg DAILY IV 01/21/25 10:00 01/22/25 09:17 40 MG Ondansetron HCl 4 mg Q4HPRN PRN IV 01/21/25 01:15 Sodium Chloride 1,000 ml @ 100 mls/hr Q10H IV 01/21/25 08:15 01/22/25 13:35 100 MLS/HR Hydromorphone HCl 0.25 mg Q4HPRN PRN IV 01/22/25 13:45 01/22/25 14:50 0.25 MG Examination Pt is lying on bed General Appearance: Alert, Oriented X3, Cooperative, Mild distress HEENT: Atraumatic, Mucous membranes moist/pink Respiratory: Clear to auscultation, Normal air movement, No added sounds Cardiovascular: Regular rate, Normal S1, Normal S2, No murmurs Abdominal/ : Active bowel sounds, Soft, no distention, no tenderness, l aparoscopic surgical scar present, no redness, erythema or pus. Abdominal binder present Extremities: No edema, Normal pulses, No tenderness/swelling Skin: No Significant rash, except past surgical scars Neuro: Normal speech, sensorimotor deficits none Psych/Mental Status: Mental status NL, Mood NL Nurse was there as medical device sales representative during examination laboratory and microbiology Laboratory Tests 01/22/25 05:03 Test 01/22/25 05:03 Range/Units Serum Glucose 86 74-106 mg/dL Microbiology Date/Time Source Procedure Growth Status 01/21/25 10:20 Blood Blood Culture - Preliminary NO GROWTH AFTER 24 HOURS OF INCUBATION. Resulted 01/20/25 22:20 Voided Urine Urine Culture - Preliminary Resulted Labs and/or images reviewed: Labs reviewed by me, Image(s) reviewed by me Problem List/Assessment/Plan Problem List/Assessment/Plan Day 2 Status post laparoscopic appendectomy Intractable abdominal pain secondary to Acute appendicitis - Abdominal CT: Appendix is fluid-filled and dilated extending deep into the pelvis posteriorly measuring 1.2 cm in diameter, mild surrounding inflammatory changes, acute uncomplicated appendicitis - NS 1000 cc bolus - NS maintenance 75 cc/hour - Metronidazole 500 mg IV q.8 hours - Ceftriaxone 1 g IV daily - Toradol 15 mg IV q.6 hours PRN - Zofran 4 mg IV q.4 hours PRN -laparoscopic appendectomy with a draining of intra-abdominal abscess performed on 01/21/2025. -No complication no drain, EBL 5 cc patient was stable postoperatively. -patient is started on clear liquid as per surgery recommendations. Acute Cystitis without Hematuria - Ceftriaxone 1 g IV daily - Urine culture, pending Vitamin-D deficiency - Vitamin-D 50226 units Q 7 D once NPO is lifted Diet: Clear liquid DVT prophylaxis: Encourage ambulation GI prophylaxis: Protonix 40 mg IV daily Plan discussed with: Patient, Other (RN) My Orders My Orders Orders - ARTURO WASHBURN Procedure Category Date Status Time Clear Liq Diet DIET 01/22/25 Transmitted Lunch Date of Service: Jan 22, 2025 Billing Provider: SIRENA KENYON MD Common Visit Codes: [id number] INP/OBS CARE(HIGH) ARTURO WASHBURN Jan 22, 2025 17:35 SIRENA KENYON MD Jan 23, 2025 22:25
--- NOTE | 2025-01-22 21:36 | DVHPN2 ---
Progress Note Date Seen: Jan 22, 2025 Medical Necessity Reason Pt with a Central, PICC or Fol: No Objective vital signs Vital Sign Date Time Temp Pulse Resp B/P (MAP) Pulse Ox O2 Delivery O2 Flow Rate FiO2 01/22/25 18:36 71 18 119/71 01/22/25 17:00 98.2 98 98.2 01/22/25 08:00 Room Air* 0 21 Total Intake and Output 01/21/25 01/21/25 01/22/25 15:00 23:00 07:00 Intake Total 1200 ml 1200 ml 300 ml Balance 1200 ml 1200 ml 300 ml medications Current Medications Medications Dose Ordered Sig/Tarsha Route Start Time Stop Time Status Last Admin Dose Admin Metronidazole 100 ml @ 100 mls/hr Q8HR IV 01/21/25 00:15 01/22/25 13:34 100 MLS/HR Ketorolac Tromethamine 15 mg Q6HPRN PRN IV 01/21/25 01:15 01/26/25 01:14 01/22/25 16:49 15 MG Ceftriaxone Sodium 50 ml @ 100 mls/hr DAILY@09 IV 01/21/25 09:00 01/22/25 09:16 100 MLS/HR Pantoprazole Sodium 40 mg DAILY IV 01/21/25 10:00 01/22/25 09:17 40 MG Ondansetron HCl 4 mg Q4HPRN PRN IV 01/21/25 01:15 Sodium Chloride 1,000 ml @ 100 mls/hr Q10H IV 01/21/25 08:15 01/22/25 13:35 100 MLS/HR Hydromorphone HCl 0.25 mg Q4HPRN PRN IV 01/22/25 13:45 01/22/25 18:36 0.25 MG laboratory and microbiology Laboratory Tests 01/22/25 05:03 Test 01/22/25 05:03 Range/Units Serum Glucose 86 74-106 mg/dL Microbiology Date/Time Source Procedure Growth Status 01/21/25 10:20 Blood Blood Culture - Preliminary NO GROWTH AFTER 24 HOURS OF INCUBATION. Resulted 01/20/25 22:20 Voided Urine Urine Culture - Preliminary Resulted Problem List/Assessment/Plan Problem List/Assessment/Plan AFEBRILE VSS ABD SOFT WOUNDS HEALING GORDON CLEAR LIQUIDS NO COMPLICATIONS ADVANCE DIET GORDON CLEARED FOR DISCHARGE AM INSTRUCTIONS RE DIET ACTIVITY F/UP GIVEN Plan discussed with: Patient My Orders My Orders Orders - PRAVEEN MORRELL MD Procedure Category Date Status Time Mechanical Soft Diet DIET 01/23/25 Transmitted Breakfast PRAVEEN MORRELL MD Jan 22, 2025 21:36
[2025-01-23 01:00] VITALS: BP 105/62; PULSE 58; RESP 17; TEMP 97.8; O2SAT 94
[2025-01-23 05:00] VITALS: BP 104/69; PULSE 62; RESP 17; TEMP 97.7; O2SAT 96
[2025-01-23 06:40] LABS: Hematocrit 35.8 % (36.0-46.0); Hemoglobin 12.3 g/dL (12.2-16.2); Mean Corpuscular Hemoglobin 29.9 pg (28.0-32.0); Mean Corpuscular Volume 87.1 fL (80.0-100.0); Nucleated Red Blood Cells % 0.0 %
[2025-01-23 06:52] LABS: Potassium 3.7 mmol/L (3.5-5.1); Sodium 143 mmol/L (136-145)
[2025-01-23 06:53] LABS: Anion Gap 9 (5-15); Carbon Dioxide 26 mmol/L (20-31)
[2025-01-23 06:56] LABS: Calcium 8.2 mg/dL (8.7-10.4); Chloride 108 mmol/L (98-107)
[2025-01-23 06:58] LABS: Glucose 81 mg/dL (74-106)
[2025-01-23 07:03] LABS: BUN/Creatinine Ratio 7.1 (10.0-20.0); Blood Urea Nitrogen < 5 mg/dL (9-23)
[2025-01-23 09:00] VITALS: BP 105/71; PULSE 67; RESP 18; TEMP 98.6; O2SAT 98
[2025-01-23 13:00] VITALS: BP 114/80; PULSE 86; RESP 18; TEMP 98; O2SAT 97
[2025-01-23] MEDS: IBUPROFEN 600 MG TAB PO ONE (14:15)
[2025-01-23 17:00] VITALS: BP 110/79; PULSE 70; RESP 17; TEMP 98.3; O2SAT 98
--- NOTE | 2025-01-23 17:24 | DVHPNRES ---
Progress Note Date Seen: Jan 23, 2025 Resident Creating Document: ARTURO WASHBURN RESIDENT Medical Necessity Reason Pt with a Central, PICC or Fol: No Subjective Review of Systems Ms. Reveles Is a 34-year-old female with no prior medical history, who presents today with chief complaint of abdominal pain. The patient states the pain began last night and is described as sharp pain in epigastrium, intensity 10/10, that radiates down to lower abdominal quadrants and toward her rectum, associated with inability to tolerate food and liquids, dry heaving, nausea, chills, and palpitation. She denies fever, diarrhea, chest pain, shortness of breath, and other symptoms. Due to persistence of symptoms, the patient sought medical attention in the emergency department. On evaluation in the ED, the patient was afebrile, tachycardic, and hypertensive. Initial labs show leukocytosis with neutrophilia and UA significant for possible UTI. Abdominal CT shows appendix is fluid-filled and dilated extending deep into the pelvis posteriorly with mild surrounding inflammatory changes suggestive of acute uncomplicated appendicitis. The patient was placed on NPO and started on IV fluids, IV pain medication, and IV antibiotics. She was admitted for further workup and management. Personal history: Denies Surgical history: previous D&C Allergies: Denies Social history: Denies drug, alcohol, and tobacco use. States she lives with her and feels safe. The patient was seen and examined at bedside. Overnight events were reviewed. Status post appendectomy: The patient reports having severe pain at the surgical site and was not able to tolerate soft diet. She reports passing flatus.She denies any other complaints. Objective vital signs Vital Sign Date Time Temp Pulse Resp B/P (MAP) Pulse Ox O2 Delivery O2 Flow Rate FiO2 01/23/25 13:00 98.0 86 18 114/80 (91) 97 98.0 01/23/25 08:00 Room Air* 0 21 Total Intake and Output 01/22/25 01/22/25 01/23/25 15:00 23:00 07:00 Intake Total 1250 ml 700 ml 1600 ml Balance 1250 ml 700 ml 1600 ml medications Current Medications Medications Dose Ordered Sig/Tarsha Route Start Time Stop Time Status Last Admin Dose Admin Metronidazole 100 ml @ 100 mls/hr Q8HR IV 01/21/25 00:15 01/23/25 14:15 100 MLS/HR Ketorolac Tromethamine 15 mg Q6HPRN PRN IV 01/21/25 01:15 01/26/25 01:14 01/22/25 16:49 15 MG Ceftriaxone Sodium 50 ml @ 100 mls/hr DAILY@09 IV 01/21/25 09:00 01/23/25 08:07 100 MLS/HR Pantoprazole Sodium 40 mg DAILY IV 01/21/25 10:00 01/23/25 08:07 40 MG Ondansetron HCl 4 mg Q4HPRN PRN IV 01/21/25 01:15 Sodium Chloride 1,000 ml @ 100 mls/hr Q10H IV 01/21/25 08:15 01/23/25 14:15 100 MLS/HR Ibuprofen 400 mg BID PRN PO 01/23/25 17:30 UNV Examination Examination Pt is lying on bed General Appearance: Alert, Oriented X3, Cooperative, Mild distress HEENT: Atraumatic, Mucous membranes moist/pink Respiratory: Clear to auscultation, Normal air movement, No added sounds Cardiovascular: Regular rate, Normal S1, Normal S2, No murmurs Abdominal/ : Active bowel sounds, Soft, no distention, no tenderness, l aparoscopic surgical scar present, no redness, erythema or pus. Abdominal binder present Extremities: No edema, Normal pulses, No tenderness/swelling Skin: No Significant rash, except past surgical scars Neuro: Normal speech, sensorimotor deficits none Psych/Mental Status: Mental status NL, Mood NL Nurse was there as proced tech during examination laboratory and microbiology Laboratory Tests 01/23/25 05:05 Test 01/23/25 05:05 Range/Units Serum Glucose 81 74-106 mg/dL Microbiology Date/Time Source Procedure Growth Status 01/21/25 10:20 Blood Blood Culture - Preliminary NO GROWTH AFTER 48 HOURS OF INCUBATION. Resulted 01/20/25 22:20 Voided Urine Urine Culture - Final Escherichia coli Complete Labs and/or images reviewed: Labs reviewed by me, Image(s) reviewed by me Problem List/Assessment/Plan Problem List/Assessment/Plan Day 3 Status post laparoscopic appendectomy Intractable abdominal pain secondary to Acute appendicitis - Abdominal CT: Appendix is fluid-filled and dilated extending deep into the pelvis posteriorly measuring 1.2 cm in diameter, mild surrounding inflammatory changes, acute uncomplicated appendicitis - NS 1000 cc bolus - NS maintenance 75 cc/hour - Metronidazole 500 mg IV q.8 hours - Ceftriaxone 1 g IV daily - Toradol 15 mg IV q.6 hours PRN - Zofran 4 mg IV q.4 hours PRN -laparoscopic appendectomy with a draining of intra-abdominal abscess performed on 01/21/2025. -No complication no drain, EBL 5 cc patient was stable postoperatively. -patient is started on soft diet, was unable to tolerate nausea and diarrhoea. Acute Cystitis without Hematuria - Ceftriaxone 1 g IV daily - Urine culture, pending Vitamin-D deficiency - Vitamin-D 81083 units Q 7 D once NPO is lifted Diet: soft diet DVT prophylaxis: Encourage ambulation GI prophylaxis: Protonix 40 mg IV daily Plan discussed with: Patient, Other (RN) Plan discussed with: Patient, Other (RN) My Orders My Orders Orders - ARTURO WASHBURN Procedure Category Date Status Time Wound Culture W/ Gs ANTHONY 01/23/25 In Process 10:30 Discharge DISCHARGE 01/23/25 Transmitted 12:52 Schedule For Dc LIONEL 01/23/25 In Process Clinic F/U 12:52 Date of Service: Jan 23, 2025 Billing Provider: SIRENA KENYON MD Common Visit Codes: [id number] INP/OBS CARE(HIGH) ARTURO WASHBURN Jan 23, 2025 17:24 SIRENA KENYON MD Jan 23, 2025 23:15
[2025-01-23] MEDS ORDERED: IBUPROFEN 400 MG TAB PO PRN ×2 (17:30→17:45)
[2025-01-23] MEDS ORDERED: KETOROLAC TROMETH 30 MG/ML 1ML VIAL IV PRN (17:45)
[2025-01-23] MEDS: SODIUM CHLORIDE 0.9% 1,000 ML IV SCH (19:45)
[2025-01-23 21:00] VITALS: BP 111/68; PULSE 74; RESP 17; TEMP 98.2; O2SAT 96
--- NOTE | 2025-01-23 21:20 | DVHPN2 ---
Progress Note Date Seen: Jan 23, 2025 Medical Necessity Reason Pt with a Central, PICC or Fol: No Objective vital signs Vital Sign Date Time Temp Pulse Resp B/P (MAP) Pulse Ox O2 Delivery O2 Flow Rate FiO2 01/23/25 17:00 98.3 70 17 110/79 (89) 98 98.3 01/23/25 08:00 Room Air* 0 21 Total Intake and Output 01/22/25 01/22/25 01/23/25 15:00 23:00 07:00 Intake Total 1250 ml 700 ml 1600 ml Balance 1250 ml 700 ml 1600 ml medications Current Medications Medications Dose Ordered Sig/Tarsha Route Start Time Stop Time Status Last Admin Dose Admin Metronidazole 100 ml @ 100 mls/hr Q8HR IV 01/21/25 00:15 01/23/25 21:13 100 MLS/HR Ceftriaxone Sodium 50 ml @ 100 mls/hr DAILY@09 IV 01/21/25 09:00 01/23/25 08:07 100 MLS/HR Ondansetron HCl 4 mg Q4HPRN PRN IV 01/21/25 01:15 Ketorolac Tromethamine 15 mg Q6HPRN PRN IV 01/23/25 17:45 01/26/25 01:14 Pantoprazole Sodium 40 mg DAILY@0600 PO 01/24/25 06:00 Ibuprofen 600 mg Q6HP PRN PO 01/23/25 19:45 Sodium Chloride 1,000 ml @ 100 mls/hr Q10H IV 01/23/25 19:45 laboratory and microbiology Laboratory Tests 01/23/25 05:05 Test 01/23/25 05:05 Range/Units Serum Glucose 81 74-106 mg/dL Microbiology Date/Time Source Procedure Growth Status 01/21/25 10:20 Blood Blood Culture - Preliminary NO GROWTH AFTER 48 HOURS OF INCUBATION. Resulted 01/20/25 22:20 Voided Urine Urine Culture - Final Escherichia coli Complete Problem List/Assessment/Plan Problem List/Assessment/Plan AFEBRILE VSS ABD SOFT WOUNDS HEALING GORDON CLEAR LIQUIDS NO COMPLICATIONS ADVANCE DIET GORDON CLEARED FOR DISCHARGE INSTRUCTIONS RE DIET ACTIVITY F/UP GIVEN NURSE AT BEDSIDE Plan discussed with: Patient PRAVEEN MORRELL MD Jan 23, 2025 21:20
[2025-01-24] MEDS: IBUPROFEN 600 MG TAB PO PRN (00:03)
[2025-01-24 01:00] VITALS: BP 90/59; PULSE 61; RESP 17; TEMP 98.1; O2SAT 98
[2025-01-24 05:00] VITALS: BP 108/66; PULSE 51; RESP 17; TEMP 98.4; O2SAT 98
[2025-01-24] MEDS: PANTOPRAZOLE 40 MG TAB PO SCH (05:32)
[2025-01-24 06:56] LABS: Hematocrit 36.5 % (36.0-46.0); Hemoglobin 12.5 g/dL (12.2-16.2); Mean Corpuscular Hemoglobin 30.0 pg (28.0-32.0); Mean Corpuscular Volume 87.2 fL (80.0-100.0); Nucleated Red Blood Cells % 0.0 %
[2025-01-24 07:05] LABS: Anion Gap 10 (5-15); Carbon Dioxide 25 mmol/L (20-31); Potassium 3.6 mmol/L (3.5-5.1); Sodium 143 mmol/L (136-145)
[2025-01-24 07:06] LABS: Calcium 8.7 mg/dL (8.7-10.4)
[2025-01-24 07:11] LABS: BUN/Creatinine Ratio 9.8 (10.0-20.0); Glucose 91 mg/dL (74-106)
[2025-01-24 07:19] LABS: Blood Urea Nitrogen 6 mg/dL (9-23); Chloride 108 mmol/L (98-107)
[2025-01-24 08:00] VITALS: PULSE 60; RESP 16
[2025-01-24 09:00] VITALS: BP 103/63; PULSE 60; RESP 16; TEMP 97.9; O2SAT 98
[2025-01-24] MEDS ORDERED: POLY33505 PO (12:02)
[2025-01-24] MEDS ORDERED: AUG875T PO (12:02)
--- NOTE | 2025-01-24 12:13 | DVHDSRES ---
Discharge Summary Date of Admission Resident Creating Document: ARTURO WASHBURN RESIDENT Jan 21, 2025 at 01:08 Date of Discharge: Jan 23, 2025 Admitting Diagnosis Acute appendicitis Labs/Diagnostic Data: Laboratory Results Test 01/24/25 04:54 01/21/25 00:23 01/20/25 22:20 01/20/25 22:00 White Blood Count 6.3 10^3/uL (4.4-10.8) Red Blood Count 4.19 10^6/uL (4.0-5.20) Hemoglobin 12.5 g/dL (12.2-16.2) Hematocrit 36.5 % (36.0-46.0) Mean Corpuscular Volume 87.2 fL (80.0-100.0) Mean Corpuscular Hemoglobin 30.0 pg (28.0-32.0) Mean Corpuscular Hemoglobin Concent 34.4 g/dL (32.0-36.0) Red Cell Distribution Width 13.6 % (11.8-14.3) Platelet Count 219 10^3/uL (140-450) Mean Platelet Volume 9.0 fL (6.9-10.8) Neutrophils (%) (Auto) 50.2 % (37.0-80.0) Lymphocytes (%) (Auto) 37.1 % (10.0-50.0) Monocytes (%) (Auto) 8.2 % (0.0-12.0) Eosinophils (%) (Auto) 4.1 % (0.0-7.0) Basophils (%) (Auto) 0.4 % (0.0-2.0) Neutrophils # (Auto) 3.2 10 ^3/uL (1.6-8.6) Lymphocytes # (Auto) 2.3 10 ^3/uL (0.4-5.4) Monocytes # (Auto) 0.5 10 ^3/uL (0-1.3) Eosinophils # (Auto) 0.3 10 ^3/uL (0-0.8) Basophils # (Auto) 0 10 ^3/uL (0-0.2) Nucleated Red Blood Cells 0.0 % Sodium Level 143 mmol/L (136-145) Potassium Level 3.6 mmol/L (3.5-5.1) Chloride Level 108 mmol/L (98-107) Carbon Dioxide Level 25 mmol/L (20-31) Anion Gap 10 (5-15) Blood Urea Nitrogen 6 mg/dL (9-23) Creatinine 0.61 mg/dL (0.550-1.02) Glomerular Filtration Rate Calc 119 mL/min (>90) BUN/Creatinine Ratio 9.8 (10.0-20.0) Serum Glucose 91 mg/dL (74-106) Calcium Level 8.7 mg/dL (8.7-10.4) Hemoglobin A1c 5.2 % A1C (<5.7) Phosphorus Level 3.7 mg/dL (2.4-5.1) Vitamin B12 Level 607 pg/mL (211-911) Vitamin D 25-Hydroxy 23.8 ng/mL (30.0-100) Thyroid Stimulating Hormone (TSH) 1.25 uIU/mL (0.55-4.78) Urine Opiates Screen Neg (NEGATIVE) Urine Fentanyl Screen Neg (NEGATIVE) Urine Barbiturates Screen Neg (NEGATIVE) Urine Phencyclidine Screen Neg (NEGATIVE) Urine Amphetamines Screen Neg (NEGATIVE) Urine Benzodiazepines Screen Neg (NEGATIVE) Urine Cocaine Screen Neg (NEGATIVE) Urine Cannabinoids Screen Neg (NEGATIVE) Urine Color Light-yellow (Yellow) Urine Clarity Clear (Clear) Urine pH 7.0 (5.0-9.0) Urine Specific [place] 1.009 (1.001-1.035) Urine Protein Negative (Negative) Urine Ketones Negative (Negative) Urine Blood Negative /uL (Negative) Urine Nitrite Negative (Negative) Urine Bilirubin Negative (Negative) Urine Urobilinogen Normal mg/dL (Negative) Urine Leukocyte Esterase 3+ /uL (Negative) Urine RBC None seen /hpf (0 - 4) Urine Microscopic WBC 9 /HPF (0-5) Urine Squamous Epithelial Cells Few /hpf (<5) Urine Bacteria Mod /hpf (None Seen) Urine Glucose Normal mg/dL (Normal) Urine Test Negative (Negative) Test 01/20/25 21:01 Prothrombin Time 11.1 sec (9.3-11.8) Prothrombin Time INR 1.05 (0.9-1.15) Activated Partial Thromboplast Time 35.1 SEC (24.5-34.5) Lactic Acid Level 0.7 mmol/L (0.4-2.0) Total Bilirubin 0.6 mg/dL (0.2-1.0) Aspartate Amino Transferase (AST) 14 U/L (13-40) Alanine Aminotransferase (ALT) 11 U/L (7-40) Alkaline Phosphatase 52 U/L (46-116) Total Protein 7.9 g/dL (5.7-8.2) Albumin 4.7 g/dL (3.2-4.8) Lipase 37 U/L (12-53) Other Laboratory Tests 01/24/25 04:54 Brief Hx & Hospital Course: Ms. Galdamez Is a 34-year-old female with no prior medical history, who presents today with chief complaint of abdominal pain. The patient states the pain began last night and is described as sharp pain in epigastrium, intensity 10/10, that radiates down to lower abdominal quadrants and toward her rectum, associated with inability to tolerate food and liquids, dry heaving, nausea, chills, and palpitation. She denies fever, diarrhea, chest pain, shortness of breath, and other symptoms. Due to persistence of symptoms, the patient sought medical attention in the emergency department. On evaluation in the ED, the patient was afebrile, tachycardic, and hypertensive. Initial labs show leukocytosis with neutrophilia and UA significant for possible UTI. Abdominal CT shows appendix is fluid-filled and dilated extending deep into the pelvis posteriorly with mild surrounding inflammatory changes suggestive of acute uncomplicated appendicitis. The patient was placed on NPO and started on IV fluids, IV pain medication, and IV antibiotics. She was admitted for further workup and management. On further evaluation, the patient was found to have appendicitis based on abdominal CT. She was managed with IV fluid, IV ceftriaxone and metronidazole. Her symptoms were controlled with Toradol and Zofran. Laparoscopic appendectomy with a draining of intra-abdominal abscess was performed on 01/21/2025. No complication was reported, no drain was placed, expected blood loss was 5 cc. The patient was stable postoperatively. Patient was started on clear liquid diet initially and was advanced as tolerated. The patient was advised to follow up with PCP, DC clinic and surgery upon discharge. The patient and the verbalized understanding of the treatment and discharge planning. Examination Pt is lying on bed General Appearance: Alert, Oriented X3, Cooperative, Mild distress HEENT: Atraumatic, Mucous membranes moist/pink Respiratory: Clear to auscultation, Normal air movement, No added sounds Cardiovascular: Regular rate, Normal S1, Normal S2, No murmurs Abdominal/ : Active bowel sounds, Soft, no distention, no tenderness, laparoscopic surgical scar present, no redness, erythema or pus. Abdominal binder present Extremities: No edema, Normal pulses, No tenderness/swelling Skin: No Significant rash, except past surgical scars Neuro: Normal speech, sensorimotor deficits none Psych/Mental Status: Mental status NL, Mood NL Nurse was there as shook splicer during examination Operations or Procedures Patient: DESTINY GALDAMEZ Acct: [id number] : 1990 Loc: [facility] Age/Sex: 34/F Room: 0208 / Bed: A Attending Phy: ARTURO WASHBURN RESIDENT DATE OF SURGERY: 01/21/2025 PREOPERATIVE DIAGNOSIS: Acute appendicitis. POSTOPERATIVE DIAGNOSES: Acute appendicitis, was found to have intraabdominal pelvic abscess. PROCEDURE: Drainage of intraabdominal pelvic abscess with laparoscopic appendectomy. SURGEON: Pipe Sweeney MD ORDER ADMINISTRATOR: None. ANESTHESIA: General. ESTIMATED BLOOD LOSS: Close to 5 mL. DRAINS: No drains were used. COMPLICATIONS: No complications were encountered. DESCRIPTION OF PROCEDURE: The patient was prepped and draped in the usual sterile fashion in the supine position and a supraumbilical incision was applied. It was taken down to the fascia. The Veress needle was introduced and CO2 insufflation was started with a pressure of 15 mmHg. The needle was withdrawn and replaced by the 12 mm trocar and the telescope was introduced. The appendix was found to be acutely inflamed and distended. Two 5 mm ports were applied more inferiorly, one above the symphysis and the third midway between the upper two. The patient was placed in Trendelenburg and right lateral decubitus position. The camera was moved to the lowermost 5 mm port. The upper 2 ports were used for surgery. The mesoappendix was transected using the Endo MIGUEL stapling device. The base of the appendix was then cleared for transection using the Harmonic device and it was transected using the Endo MIGUEL stapling device as well. The appendix was released in this fashion, was retrieved from the supraumbilical wound in an EndoCatch bag without any complication. Hemostasis was secured. Irrigation fluid was removed. The port sites were free from bleeding. EndoClose suture was used for the fascial closure of the supraumbilical wound. All the ports were withdrawn after all the CO2 was let out and the patient was placed in supine. The wound was then brought together using 3-0 Monocryl suture in a subcuticular fashion. Surgical glue was applied. The patient tolerated the procedure well and was taken back to the recovery room in a stable condition. MD JANETT Rodríguez/LATESHA TID: [id number] RECEIPT: [id number] PATIENT: DESTINY GALDAMEZ ACCT: [id number] UNIT: [id number] : 1990 LOC: ER ROOM / BED: / AGE / SEX: 34 / F ADM STATUS: REG ER SERVICE 57 ORDERING PHYSICIAN: NELSON ROMAN RESIDENT PROCEDURE(s): ABPL - CT AB PEL WO CON-NO ORAL OR IV REASON: abdominal pain ORDER NUMBER(s): [id number], ACCESSION NUMBER(s): [id number] Exam: CT CT AB PEL WO CON-NO ORAL OR IV History: abdominal pain Comparison Study: None Technique: Multidetector spiral CT of the abdomen was performed from lung bases to pubic symphysis. Imaging was performed without IV contrast. Axial, coronal and sagittal multiplanar reformats were obtained from the axial data set by the technologist. Radiation Dose : 1. Abdomen/Pelvis: CTDIvol 6.36 mGy, DLP 305.1 mGy*cm. Findings: Evaluation of solid organs is limited due to lack of intravenous contrast use. Lung Bases: No acute or significant lung base finding. Normal heart size. No pleural or pericardial effusion. Liver: The liver is normal in size. No focal lesions. Gallbladder and Biliary Tree: Unremarkable Spleen: Unremarkable Pancreas: The pancreas is grossly normal in appearance. Adrenal Glands: Unremarkable Kidneys: Kidneys are grossly normal without calculi or hydronephrosis. Bladder: Grossly unremarkable for degree of distention. Bowel: Appendix is fluid-filled and dilated extending deep into the pelvis posteriorly measuring 1.2 cm in diameter. Mild surrounding inflammatory changes. Ascites: Trace free fluid, within normal limits for physiologic. Lymphadenopathy: No mesenteric, retroperitoneal or periportal lymphadenopathy. Abdominal Wall and Mesentery: Unremarkable. Vasculature: The visualized abdominal aorta is normal in size and caliber. Evaluation of abdominal and pelvic vessels is limited due to lack of intravenous contrast. Pelvic Organs: IUD in-situ. Musculoskeletal: No aggressive focal bony lesions, acute fractures or dislocation. IMPRESSION: Acute uncomplicated appendicitis. Radiation optimization: All CT scans at this facility use at least one of these dose optimization techniques: automated exposure control mA and/or kV adjustment per patient size (includes targeted exams where dose is matched to clinical indication) or iterative reconstruction. Condition at Discharge: Stable Final Diagnosis/Problems List Intractable abdominal pain secondary to Acute appendicitis Acute Cystitis without Hematuria Vitamin-D deficiency Discharge Disposition: Home Discharge Instruct/Medications Diet: Regular Activity: No Restrictions, As Tolerated Follow Up/Referral: Follow up with surgery, PCP and DC clinic in 1 week. Medications: As er EMR Scheduled Amoxicillin & Pot Clavulanate (Augmentin Tablet), 875 MG PO BID Scheduled PRN Polyethylene Glycol (Miralax), 17 GM PO DAILY PRN Discharge Statement: "Patient was advised to return to the ER or call 911 if any headaches, dizziness, shortness of breath, chest pain, abdominal pain, bleeding, fevers, or worsening of medical condition. Patient was counseled about treatment plan, medications, possible side effects, patientverbalized understanding. All questions were answered to the best of my ability. This discharge took greater then 30 minutes in planning, reviewing documentation, counseling the patient, and discussing with other team members." ASSESSMENT ASSESSMENT Assessment Acute appendicitis Appendectomy Date of Service: Jan 24, 2025 Billing Provider: SIRENA KENYON MD Common Visit Codes: 76236-HLS/OBS DISCH DAY >30min WUARTURO Posada RESIDENT Jan 24, 2025 12:13 SIRENA KENYON MD Jan 25, 2025 09:39
[2025-01-24 12:43] VITALS: BP 113/78; PULSE 78; RESP 16; TEMP 97.8; O2SAT 96
== END 2025-01-24 13:20 | disposition home or self-care (01) | DRG 234 ==
LOC: ER 19:54 → OVERFLOW 01-21 01:08 → CENTRAL 01-21 17:30
PROVIDERS: ADMIT Internal Medicine; ATTEND Internal Medicine
PROC: 0DTJ4ZZ Resection of Appendix, Percutaneous Endoscopic Approach (ICD-10-PCS; principal; 2025-01-21 15:15)
DX: K35.80 Unspecified acute appendicitis (principal); R71.0 Precipitous drop in hematocrit; E55.9 Vitamin D deficiency, unspecified; N30.00 Acute cystitis without hematuria; N73.9 Female pelvic inflammatory disease, unspecified; Z82.49 Family history of ischemic heart disease and other diseases of the circulatory system
CPT/HCPCS: 36415; 74176; 80048; 80053; 80307; 81001; 81025; 82306; 82607; 83036; 83605; 83690; 84100; 84443; 85025; 85610; 85730; 86850; 86900; 86901; 87040; 87081; 87086; 87088; 87186; 87205; G0378; J0131; J1885; J2003; J2250; J2405; J2470; J2704; J3490